=== PATIENT | female | born 1970 | race Caucasian/White ===

== ENCOUNTER 2016-10-07 09:14 | Observation (INO) | payer OTHER ==
[~2016-10-07] VITALS: Ht 172.7 cm; Wt 76.0 kg
[~2016-10-07 09:14] MED LIST: ALPR0.25 PO; ASPI1TAB2 PO; BUPIVACAINE/PF-EPI 0.25% 1:200K ONE
[2016-10-07] MEDS ORDERED: LACTATED RINGERS 1,000 ML IV SCH (10:05)
[2016-10-07] MEDS ORDERED: LIDOCAINE 1%, 2ML ONE (10:11)
[2016-10-07 10:19] LABS: HCG UR OBC PASS
[2016-10-07] MEDS ORDERED: LIDOCAINE 1%, 2ML SQ PRN (10:30)
[2016-10-07] MEDS ORDERED: SCOPOLAMINE PATCH, 1.5MG PATCH.TD72 TD ONE (11:13)
[2016-10-07] MEDS ORDERED: FENTANYL PF 250 MCG/5ML ONE (11:13)
[2016-10-07] MEDS ORDERED: MIDAZOLAM 1 MG/ML, 2ML ONE (11:13)
[2016-10-07] MEDS ORDERED: GLYCOPYRROLATE 0.2MG/1ML ONE (11:23)
[2016-10-07] MEDS ORDERED: ONDANSETRON 2MG/ML, 2ML ONE ×3 (11:23→14:27)
[2016-10-07] MEDS ORDERED: NEOSTIGMINE 1 MG/ML, 10ML ONE (11:23)
[2016-10-07] MEDS ORDERED: CEFOTETAN 1 GM ONE (11:23)
[2016-10-07] MEDS ORDERED: PROPOFOL 10 MG/ML, 20ML ONE (11:23)
[2016-10-07] MEDS ORDERED: ROCURONIUM 10 MG/ML ONE (11:23)
[2016-10-07] MEDS ORDERED: DEXAMETHASONE 4 MG/ML, 1ML ONE (11:23)
[2016-10-07] MEDS ORDERED: ACETAMINOPHEN 325 MG TABLET PO PRN (12:30)
[2016-10-07] MEDS ORDERED: OXYcodone 5 MG/5 ML ORAL.SOL UDC PO PRN (12:30)
[2016-10-07] MEDS ORDERED: METOPROLOL 1 MG/ML, 5ML IV PRN (12:30)
[2016-10-07] MEDS ORDERED: PROMETHAZINE 25 MG/ML, 1ML IV PRN (12:30)
[2016-10-07] MEDS ORDERED: hydrALAzine 20 MG/ML, 1ML IV PRN (12:30)
[2016-10-07] MEDS ORDERED: MEPERIDINE/PF 25MG/0.5ML IVPush PRN (12:30)
[2016-10-07] MEDS ORDERED: ALBUTEROL SULFATE 2.5 MG/3 ML NPPB PRN (12:30)
[2016-10-07] MEDS ORDERED: MIDAZOLAM 1 MG/ML, 2ML IV PRN (12:30)
[2016-10-07] MEDS ORDERED: FENTANYL PF 100 MCG/2ML IV PRN (12:30)
[2016-10-07] MEDS ORDERED: FENTANYL PF 100 MCG/2ML ONE (13:29)
[2016-10-07] MEDS ORDERED: OXYcodone 5 MG/5 ML ORAL.SOL UDC ONE (13:29)
[2016-10-07] MEDS ORDERED: OXYcodone/APAP 5/325MG TABLET PO PRN (13:30)
[2016-10-07] MEDS ORDERED: morphine SULFATE 10 MG/ML, 1ML IVPush PRN (13:30)
[2016-10-07] MEDS ORDERED: HYDROmorphone 2 MG/ML, 1ML ONE (14:07)
[2016-10-07] MEDS: ONDANSETRON 2MG/ML, 2ML IVPush PRN ×3 (14:08→20:00)
[2016-10-07] MEDS ORDERED: KETOROLAC 30 MG/1 ML ONE (14:09)
[2016-10-07] MEDS: KETOROLAC 30 MG/1 ML IVPush PRN ×2 (14:12→20:00)
[2016-10-07] MEDS: HYDROmorphone 1 MG/ML, 1ML IV PRN ×2 (14:12→14:30)
[2016-10-07] MEDS: PROMETHAZINE 25 MG/ML, 1ML IM PRN (22:55)
[2016-10-07] MEDS: METOCLOPRAMIDE 5 MG/ML, 2ML IVPush SCH (22:55)
[2016-10-08 02:31] VITALS: BP 118/72
[2016-10-08] MEDS: KETOROLAC 30 MG/1 ML IVPush PRN ×2 (04:50→10:48)
[2016-10-08] MEDS: METOCLOPRAMIDE 5 MG/ML, 2ML IVPush SCH ×2 (04:50→10:47)
[2016-10-08] MEDS: PROMETHAZINE 25 MG/ML, 1ML IM PRN (04:51)
[2016-10-08] MEDS: LACTATED RINGERS 1,000 ML IV SCH ×2 (06:23→09:06)
[2016-10-08 07:00] VITALS: BP 103/50
[2016-10-08 08:57] LABS: BLOOD UREA NITROGEN 11 mg/dL (7-18)
[2016-10-08] MEDS ORDERED: PROM25SU34 RC (11:21)
[2016-10-08] MEDS ORDERED: METO10TA82 PO (11:23)
[2016-10-08] MEDS ORDERED: OXYC-223 PO (11:26)
[2016-10-08] MEDS ORDERED: ONDA4TAB7 PO (11:26)
== END 2016-10-08 11:45 | disposition home or self-care (01) ==
LOC: OUT 09:14 → 4NOR 20:01 → OUT 20:01 → INTOOBSV 20:01 → 4NOR 20:27 → DCLOUNGE 10-08 11:16
PROVIDERS: ADMIT Specialist; ATTEND Specialist
DX: D25.9 Leiomyoma of uterus, unspecified (principal); Z87.440 Personal history of urinary (tract) infections
CPT/HCPCS: 36415; 58571; 74000; 80048; 81025; 85025; 86850; 86900; 86923; 88307; 96372; 96374; 96375; 96376; G0378; J1100; J1170; J1885; J2405; J2550; J2704; J2710; J2765; J3010; J3490; J7120; S2900; S0074